=== PATIENT | male | born 1940 | race Caucasian/White ===

== ENCOUNTER 2023-08-15 11:29 | Day surgery (SDC) | payer OTHER ==
[2023-08-08 09:23] LABS: BASOPHILS # (AUTO) 0.1 X10'3 (0-0.2); BASOPHILS % (AUTO) 1.1 % (0-1); EOSINOPHILS # (AUTO) 0.2 X10'3 (0-0.9); EOSINOPHILS % (AUTO) 3.7 % (0-6); HEMATOCRIT 49.5 % (42.0-52.0); HEMOGLOBIN 17.1 g/dl (14.0-17.9); LYMPHOCYTES % (AUTO) 17.4 % (21-51); MEAN CORPUSCULAR HEMOGLOBIN 32.4 PG (27.0-31.0); MEAN CORPUSCULAR HGB CONC 34.5 g/dL (33.0-36.5); MEAN CORPUSCULAR VOLUME 93.8 FL (78-98); MEAN PLATELET VOLUME 7.3 FL (7.4-10.4); MONOCYTES # (AUTO) 0.5 X10'3 (0-0.9); MONOCYTES % (AUTO) 8.2 % (2-12); NEUTROPHILS # (AUTO) 4.1 X10'3 (1.8-7.7); NEUTROPHILS % (AUTO) 69.6 % (42-75); PLATELET COUNT 184 X10'3 (140-440); RED BLOOD COUNT 5.28 X10'6 (4.70-6.10); RED CELL DISTRIBUTION WIDTH 13.2 % (11.5-14.5); WHITE BLOOD COUNT 5.9 X10'3 (4.5-11.0)
[2023-08-08 09:36] LABS: APTT 28 SECONDS (22-32); INR 1.1 INR; PROTHROMBIN TIME 11.4 SECONDS (9.0-12.0)
[2023-08-08 09:37] LABS: ALBUMIN 4.2 G/DL (3.4-5.0); ANION GAP 6 (8-16); BLOOD UREA NITROGEN 20 MG/DL (7-18); BUN/CREATININE RATIO 19.4 (10.0-20.0); CALCIUM 9.1 MG/DL (8.5-10.1); CHLORIDE 103 MMOL/L (99-107); CHOL/HDL RATIO 3.2 (0.00-4.99); CHOLESTEROL 186 MG/DL (0-200); CREATININE 1.03 MG/DL (0.60-1.10); GLUCOSE 95 MG/DL (70-104); HDL CHOLESTEROL 59 MG/DL (35-60); LDL CHOLESTEROL 111 MG/DL (50-100); POTASSIUM 4.3 MMOL/L (3.5-5.1); SODIUM 139 MMOL/L (135-145); TRIGLYCERIDES 89 MG/DL (20-135); eGFR 69 ML/MIN
[2023-08-15] VITALS (8 sets, daily range): BP systolic 100–160; BP diastolic 55–79; PULSE 53–65; RESP 15–16; TEMP 97.4; O2SAT 94–98
[~2023-08-15] VITALS: Ht 165.1 cm; Wt 75.1 kg
[2023-08-15] MEDS ORDERED: normal saline 1,000 ML IV SCH (11:45)
[2023-08-15] MEDS ORDERED: LORazepam 0.5 MG tablet PO PRN (11:45)
[2023-08-15] MEDS ORDERED: diphenhydrAMINE 25mg capsule PO PRN (11:45)
[2023-08-15] MEDS ORDERED: ASPI-1265 PO (11:51)
[2023-08-15] MEDS ORDERED: LISI10TA27 PO (11:51)
[2023-08-15] MEDS ORDERED: FLO0.4C PO (11:51)
[2023-08-15] MEDS ORDERED: ROSU40TA PO (11:51)
[2023-08-15] MEDS ORDERED: DOCU-148 PO (11:53)
[2023-08-15] MEDS ORDERED: MAGN400C PO (11:53)
[2023-08-15] MEDS ORDERED: verapamil 2.5 mg/ml inj IV ONE (12:16)
[2023-08-15] MEDS ORDERED: LIDOcaine 1% (10mg/ml) 2ml vial ONE (12:16)
[2023-08-15] MEDS ORDERED: midazolam 1 mg/ML 2ml injection ONE (12:17)
[2023-08-15] MEDS ORDERED: iohexol 350MG/ML 100ml bottle IV ONE ×2 (12:17→13:48)
[2023-08-15] MEDS ORDERED: fentaNYL/PF 50MCG/1 ML 2ML syringe ONE (12:17)
[2023-08-15] MEDS ORDERED: heparin 1,000unit/ml 10ml vial 0 ML ONE (12:17)
[2023-08-15] MEDS ORDERED: nitroGLYCERIN 500mcg/5mL D5W 5 ML IV ONE (12:20)
[2023-08-15] MEDS ORDERED: heparin 1,000unit/ml 10ml vial 10 ML ONE (13:48)
[2023-08-20] MEDS ORDERED: ISOS10TA8 PO (16:23)
[2023-09-05] MEDS ORDERED: DOCU240C26 PO (10:55)
== END 2023-08-15 17:15 | disposition home or self-care (01) ==
LOC: SSTAY O 11:29
PROVIDERS: ATTEND Student in an Organized Health Care Education/Training Program
DX: R94.39 Abnormal result of other cardiovascular function study (principal); I10 Essential (primary) hypertension; E78.00 Pure hypercholesterolemia, unspecified; I25.10 Atherosclerotic heart disease of native coronary artery without angina pectoris; Z79.82 Long term (current) use of aspirin; Z79.899 Other long term (current) drug therapy
CPT/HCPCS: 36415; 80048; 80061; 85025; 85610; 85730; 93005; 93458; 99152; A6258; J1644; J2250; J3010; J3490; J7030; Q0163; Q9967; 96360; A6402; C1769; C1894

== ENCOUNTER 2023-09-08 08:33 | Inpatient (IN) | payer OTHER, MEDICARE ==
[2023-08-29 14:25] LABS: BILIRUBIN,URINE NEGATIVE (Neg); CLARITY,URINE CLEAR (Clear); COLOR,URINE YELLOW (Yellow); GLUCOSE, URINE NEGATIVE (Neg); KETONES,URINE NEGATIVE (Neg); LEUKOCYTE ESTERASE ,URINE NEGATIVE (Neg); NITRITES, URINE NEGATIVE (Neg); OCCULT BLOOD,URINE TRACE-INTACT (Neg); PROTEIN,URINE NEGATIVE (Neg); UROBILINOGEN,URINE 0.2 E.U/dL (0.2-1.0)
[2023-08-29 14:27] LABS: BASOPHILS # (AUTO) 0.1 X10'3 (0-0.2); BASOPHILS % (AUTO) 1.2 % (0-1); EOSINOPHILS # (AUTO) 0.2 X10'3 (0-0.9); EOSINOPHILS % (AUTO) 3.2 % (0-6); LYMPHOCYTES % (AUTO) 14.6 % (21-51); MEAN CORPUSCULAR HEMOGLOBIN 32.2 PG (27.0-31.0); MEAN CORPUSCULAR HGB CONC 34.2 g/dL (33.0-36.5); MEAN PLATELET VOLUME 7.4 FL (7.4-10.4); MONOCYTES # (AUTO) 0.6 X10'3 (0-0.9); MONOCYTES % (AUTO) 8.1 % (2-12); NEUTROPHILS # (AUTO) 5.2 X10'3 (1.8-7.7); NEUTROPHILS % (AUTO) 72.9 % (42-75); PRE OP HEMATOCRIT 46.7 % (42.0-52.0); PRE OP PLATELET COUNT 213 X10'3 (140-440); PRE OP WHITE BLOOD COUNT 7.1 10'3 (4.8-10.8); RED BLOOD COUNT 4.97 X10'6 (4.70-6.10); RED CELL DISTRIBUTION WIDTH 13.2 % (11.5-14.5)
[2023-08-29 14:39] LABS: PRE OP PROTIME 10.9 SECONDS (9.0-12.0)
[2023-08-29 14:40] LABS: ALBUMIN 3.8 G/DL (3.4-5.0); ALBUMIN/GLOBULIN RATIO 1.1 (1.1-1.5); ALKALINE PHOSPHATASE 71 IU/L (46-116); BLOOD UREA NITROGEN 23 MG/DL (7-18); BUN/CREATININE RATIO 19.8 (10.0-20.0); CALCIUM 9.2 MG/DL (8.5-10.1); CHLORIDE 102 MMOL/L (99-107); CREATININE 1.16 MG/DL (0.60-1.10); PRE OP ALT 44 U/L (30-65); PRE OP ANION GAP 4 (8-16); PRE OP AST 27 U/L (10-37); PRE OP BILIRUB, TOTAL 0.5 MG/DL (0.0-1.0); PRE OP GLUCOSE 97 MG/DL (70-104); PRE OP POTASSIUM 4.4 MMOL/L (3.4-5.1); PRE OP SODIUM 136 MMOL/L (135-145); TOTAL CARBON DIOXIDE 30.4 MMOL/L (24-32); TOTAL PROTEIN 7.4 G/DL (6.4-8.2); eGFR 60 ML/MIN
[2023-08-29 14:42] LABS: SQUAMOUS EPITHELIAL CELL,UR FEW /LPF (FEW); UA COLLECTION TYPE NON-SPECIFIED
[2023-08-29 14:43] LABS: BACTERIA,URINE FEW /HPF (Neg); MUCUS STRANDS MANY /LPF (Neg); RBC,URINE 0-2 /HPF (0-2); WBC,URINE 0-4 /HPF (0-4)
[2023-09-01 06:57] LABS: ABG BASE EXCESS -1.5 mmol/L (-2.0-2.0); ABG HCO3 22.6 mmol/L (22.0-26.0); ABG OXYGEN SATURATION 96.8 % (94-97); ABG PCO2 (T) 36.6 mmHg (35.0-48.0); ABG PH (T) 7.408 (7.340-7.440); ABG PO2 (T) 83.4 mmHg (75.0-100.0); ALLEN'S TEST POSITIVE; FCOHb 0.2 % (0.0-3.9); FHHb 3.2 % (0.0-5.0); FMetHb 0.3 % (0.0-1.5); FO2Hb 96.3 % (94-97); MODE ROOM AIR; TOTAL HEMOGLOBIN 17.1 G/dl (14.0-17.9)
[2023-09-08] VITALS (26 sets, daily range): BP systolic 91–135; BP diastolic 9–73; PULSE 54–97; RESP 12–30; TEMP 98.4–99.5; O2SAT 94–99
[~2023-09-08] VITALS: Ht 162.6 cm; Wt 74.4 kg
[2023-09-08] MEDS: cefazolin 2gm/D5W 100mL 100 ML IV ONE (05:30)
[2023-09-08] MEDS: famotidine 20mg tablet PO ONE (05:30)
[2023-09-08] MEDS: metoprolol tartrate 12.5mg (1/2 tablet) PO ONE (05:30)
[~2023-09-08 08:33] MED LIST: 0.9 % SODIUM CHLORIDE 10 ML VIAL ONE; ASPI-1265 PO; BUPIVAcaine 0.5% inj/PF 30 ML ONE; DOCU240C26 PO; FLO0.4C PO; ISOS10TA8 PO; Insulin Reg/NS 100units/100mL 100 ML IV SCH; LIDOcaine 2% (20mg/ml) 5ml vial ONE; LISI10TA27 PO; MAGN400C PO; ROPIVAcaine 0.5% (5mg/ml) 30ml vial ONE; ROSU40TA PO; ceFAZolin 1000mg inj ONE; dexamethasone sod phosphate 4mg/ml inj. ONE; dextrose 50%-water 50ml dispensing syringe IV PRN; ePHEDrine 50MG/ML INJ. ONE; epiNEPHrine 1 mg/ml inj ONE; fentaNYL /PF 50mcg/ml 5ml ampule ONE; glycopyrrolate 0.2mg/ml inj ONE; heparin 10,000 units/1 ML INJ ONE; insulin Lispro (HumaLOG) vial - multi-dose SQ PRN; midazolam 1 mg/ML 2ml injection ONE; ondansetron/PF 4mg/2ml inj ONE; propofol inj 20 ML IV ONE
[2023-09-08] MEDS: vancomycin 1,500 MG in NS 300ml IV soln IV ONE (10:00)
[2023-09-08] MEDS: mupirocin 2% nasal ointment 1gm UD NS ONE (10:00)
[2023-09-08] MEDS: ringers solution, lacted 1,000 ML IV SCH (10:00)
[2023-09-08] MEDS: LORazepam 2 mg/ml vial IV ONE (10:01)
[2023-09-08] MEDS ORDERED: heparin 10,000 units/1 ML INJ ONE (12:00)
[2023-09-08] MEDS ORDERED: vancomycin 1,000mg inj ONE (12:20)
[2023-09-08] MEDS ORDERED: MIDAZolam 1 MG/ML 5ML VIAL ONE (12:51)
[2023-09-08] MEDS ORDERED: SUfentanil 50mcg/ml 1ml amp IV ONE (12:51)
[2023-09-08] MEDS: BUPIVAcaine 0.5% inj/PF 30 ml vial IJ ONE (13:00)
[2023-09-08] MEDS: heparin 10,000 units/1 ML INJ IR ONE (13:00)
[2023-09-08] MEDS: epiNEPHrine 1 mg/ml inj SQ ONE (13:00)
[2023-09-08 13:52] LABS: ABG BASE EXCESS -2.1 mmol/L (-2.0-2.0); ABG HCO3 21.1 mmol/L (22.0-26.0); ABG PCO2 32.2 mmHg (35.0-48.0); ABG PH 7.435 (7.340-7.440); ABG PO2 187.7 mmHg (75.0-100.0); CL (ABG) 103 mmol/L (99-107); FCOHb 0.3 % (0.0-3.9); FO2Hb 98.7 % (94-97); GLUCOSE (ABG) 86 mg/dl (70-104); IONIZED CA (ABG) 1.17 mmol/L (1.10-1.30); K (ABG) 4.2 mmol/L (3.5-5.1); TOTAL HEMOGLOBIN 14.9 G/dl (14.0-17.9)
[2023-09-08 14:19] LABS: ACT @ 1.70 U 244 SEC (193-297); ACT @ 2.84 U 361 SEC (260-420); BASELINE ACT 129 SEC (101-148); PATIENT WEIGHT 73.0k KG
[2023-09-08 14:28] LABS: ABG BASE EXCESS VENOUS -3.8 mmol/L (-2.0 - 2.0); ABG HCO3 VENOUS 22.6 mmol/L (21.0-28.0); ABG OXYGEN SATURATION VENOUS 85.1 % (75 - 99 %); ABG PCO2 VENOUS 46.1 mmHg (41.0-54.0); ABG PH (VENOUS) 7.308 (7.310-7.450); ABG PO2 VENOUS 49.9 mmHg (25.0-35.0); CL (ABG) 102 mmol/L (99-107); FCOHb VENOUS 0.4 %; FHHb VENOUS 14.8 %; FO2Hb VENOUS 84.8 %; GLUCOSE (ABG) 105 mg/dl (70-104); IONIZED CA (ABG) 1.15 mmol/L (1.10-1.30); K (ABG) 4.2 mmol/L (3.5-5.1); TOTAL HEMOGLOBIN 14.4 G/dl (14.0-17.9)
[2023-09-08] MEDS ORDERED: rocuronium 10mg/ml inj IV ONE ×2 (14:41)
[2023-09-08] MEDS ORDERED: propofol inj 20 ML IV ONE (14:41)
[2023-09-08] MEDS ORDERED: heparin 1,000unit/ml 10ml vial 10 ML ONE (14:41)
[2023-09-08 15:27] LABS: ABG BASE EXCESS VENOUS -4.9 mmol/L (-2.0 - 2.0); ABG HCO3 VENOUS 21.4 mmol/L (21.0-28.0); ABG OXYGEN SATURATION VENOUS 78.8 % (75 - 99 %); ABG PCO2 VENOUS 44.1 mmHg (41.0-54.0); ABG PH (VENOUS) 7.303 (7.310-7.450); ABG PO2 VENOUS 42.5 mmHg (25.0-35.0); CL (ABG) 103 mmol/L (99-107); FCOHb VENOUS 0.2 %; FHHb VENOUS 21.2 %; FO2Hb VENOUS 78.6 %; GLUCOSE (ABG) 111 mg/dl (70-104); IONIZED CA (ABG) 1.12 mmol/L (1.10-1.30); TOTAL HEMOGLOBIN 13.9 G/dl (14.0-17.9)
[2023-09-08 15:30] LABS: ACTIVATED CLOTTING TIME 111 SEC (101-148)
[2023-09-08] MEDS ORDERED: nitroGLYCERIN-Tridil 50MG/D5W 250 ML IV PRN ×2 (15:30→15:44)
[2023-09-08] MEDS ORDERED: metoclopramide 5 mg/ml inj IV PRN (15:30)
[2023-09-08] MEDS ORDERED: sodium phosphate inj. 30 MMOL in dextrose 5%-water 250 ML IV PRN (15:30)
[2023-09-08] MEDS: Insulin Reg/NS 100units/100mL 100 ML IV SCH (15:30)
[2023-09-08] MEDS ORDERED: Neutra Phos packet PO PRN (15:30)
[2023-09-08] MEDS ORDERED: potassium Cl 20 mEq SR tablet PO PRN (15:30)
[2023-09-08] MEDS: sodium chloride 0.45% 1,000 ML IV SCH (15:30)
[2023-09-08] MEDS ORDERED: insulin glargine (Lantus) pen - multi-dose SQ PRN (15:30)
[2023-09-08] MEDS ORDERED: potassium Cl 40MEQ/1/2NS 520ml 520 ML IV PRN (15:30)
[2023-09-08] MEDS ORDERED: acetaminophen 325mg tablet PO PRN ×2 (15:30)
[2023-09-08] MEDS ORDERED: mineral oil 133ml enema RC PRN (15:30)
[2023-09-08] MEDS ORDERED: niCARDipine-NS 40mg/200ml IVPB 200 ML IV PRN (15:30)
[2023-09-08] MEDS ORDERED: bisacodyl 10mg suppository rectal RC PRN (15:30)
[2023-09-08] MEDS ORDERED: magnesium 2GM in 50ml NS 50 ML IV PRN (15:30)
[2023-09-08] MEDS ORDERED: potassium CL 10mEq/100ml bag 100 ML IV PRN (15:30)
[2023-09-08] MEDS ORDERED: potassium Cl 20mEq/100mL bag 100 ML IV PRN (15:30)
[2023-09-08] MEDS ORDERED: dextrose 50%-water 50ml dispensing syringe IV PRN (15:30)
[2023-09-08] MEDS: ceFAZolin/D5W- 1GM premix 50 ML IV SCH (16:00)
[2023-09-08 16:11] LABS: ABG BASE EXCESS -6.3 mmol/L (-2.0-2.0); ABG HCO3 18.7 mmol/L (22.0-26.0); ABG OXYGEN SATURATION 97.8 % (94-97); ABG PCO2 (T) 32.3 mmHg (35.0-48.0); ABG PO2 (T) 97.5 mmHg (75.0-100.0); FCOHb 0.3 % (0.0-3.9); FHHb 2.2 % (0.0-5.0); FMetHb 0.2 % (0.0-1.5); FO2Hb 97.3 % (94-97); MODE VENT - SIMV; PEEP 5 cm H2O; RESPIRATORY RATE 12 b/min; TIDAL VOLUME 500 mL; TOTAL HEMOGLOBIN 13.2 G/dl (14.0-17.9)
[2023-09-08 16:16] LABS: BASOPHILS % (AUTO) 0.3 % (0-1); EOSINOPHILS # (AUTO) 0.2 X10'3 (0-0.9); EOSINOPHILS % (AUTO) 1.6 % (0-6); HEMATOCRIT 36.5 % (42.0-52.0); HEMOGLOBIN 12.6 g/dl (14.0-17.9); LYMPHOCYTES # (AUTO) 0.8 X10'3 (1.1-4.8); LYMPHOCYTES % (AUTO) 7.5 % (21-51); MEAN CORPUSCULAR HEMOGLOBIN 32.4 PG (27.0-31.0); MEAN CORPUSCULAR HGB CONC 34.6 g/dL (33.0-36.5); MEAN CORPUSCULAR VOLUME 93.6 FL (78-98); MEAN PLATELET VOLUME 7.6 FL (7.4-10.4); MONOCYTES # (AUTO) 0.4 X10'3 (0-0.9); MONOCYTES % (AUTO) 3.9 % (2-12); NEUTROPHILS # (AUTO) 9.1 X10'3 (1.8-7.7); NEUTROPHILS % (AUTO) 86.7 % (42-75); PLATELET COUNT 136 X10'3 (140-440); WHITE BLOOD COUNT 10.5 X10'3 (4.5-11.0)
[2023-09-08 16:27] LABS: APTT 31 SECONDS (22-32); INR 1.2 INR
[2023-09-08 16:33] LABS: ANION GAP 10 (8-16); BILIRUBIN,TOTAL 0.8 MG/DL (0.1-1.0); BLOOD UREA NITROGEN 22 MG/DL (7-18); BUN/CREATININE RATIO 23.4 (10.0-20.0); CALCIUM 7.7 MG/DL (8.5-10.1); CHLORIDE 104 MMOL/L (99-107); CREATININE 0.94 MG/DL (0.60-1.10); GLUCOSE 117 MG/DL (70-104); MAGNESIUM 1.8 MG/DL (1.5-2.4); PHOSPHORUS 2.8 MG/DL (2.3-4.5); SODIUM 137 MMOL/L (135-145); TOTAL CARBON DIOXIDE 22.6 MMOL/L (24-32); eCRCL 53 ML/MIN; eGFR 77 ML/MIN
[2023-09-08 16:34] LABS: ALANINE AMINOTRANSFERASE 35 U/L (12-78); ALBUMIN 3.4 G/DL (3.4-5.0); ALBUMIN/GLOBULIN RATIO 1.5 (1.1-1.5); ALKALINE PHOSPHATASE 45 IU/L (46-116); ASPARTATE AMINO TRANSFERASE 22 U/L (10-37); TOTAL PROTEIN 5.7 G/DL (6.4-8.2)
[2023-09-08] MEDS: albumin (Human) 5% 250ml 250 ML IV PRN (16:43)
[2023-09-08] MEDS: morphine 4 MG/ML inj SYRINge IV PRN (16:50)
[2023-09-08] MEDS: potassium Cl 40MEQ/270ML bag 250 ML IV PRN (17:15)
[2023-09-08] MEDS: magnesium 4gm in 100ml NS 100 ML IV PRN (17:15)
[2023-09-08 18:45] LABS: MEAN CORPUSCULAR HEMOGLOBIN 27.7 PG (27.0-31.0)
[2023-09-08 18:46] LABS: BASOPHILS # (AUTO) 0.1 X10'3 (0-0.2); BASOPHILS % (AUTO) 0.6 % (0-1); EOSINOPHILS % (AUTO) 0.1 % (0-6); HEMATOCRIT 23.2 % (42.0-52.0); HEMOGLOBIN 7.5 g/dl (14.0-17.9); LYMPHOCYTES # (AUTO) 0.7 X10'3 (1.1-4.8); LYMPHOCYTES % (AUTO) 6.7 % (21-51); MEAN CORPUSCULAR HGB CONC 32.3 g/dL (33.0-36.5); MEAN CORPUSCULAR VOLUME 85.8 FL (78-98); MONOCYTES # (AUTO) 0.5 X10'3 (0-0.9); NEUTROPHILS # (AUTO) 8.6 X10'3 (1.8-7.7); NEUTROPHILS % (AUTO) 87.6 % (42-75); PLATELET COUNT 101 X10'3 (140-440); WHITE BLOOD COUNT 9.8 X10'3 (4.5-11.0)
[2023-09-08 19:03] LABS: ALBUMIN 3.1 G/DL (3.4-5.0); ALBUMIN/GLOBULIN RATIO 0.9 (1.1-1.5); ALKALINE PHOSPHATASE 203 IU/L (46-116); ANION GAP 10 (8-16); BILIRUBIN,TOTAL 1.1 MG/DL (0.1-1.0); BLOOD UREA NITROGEN 71 MG/DL (7-18); BUN/CREATININE RATIO 28.4 (10.0-20.0); CALCIUM 7.2 MG/DL (8.5-10.1); CHLORIDE 106 MMOL/L (99-107); GLUCOSE 155 MG/DL (70-104); MAGNESIUM 2.8 MG/DL (1.5-2.4); PHOSPHORUS 5.3 MG/DL (2.3-4.5); POTASSIUM 5.3 MMOL/L (3.5-5.1); SODIUM 141 MMOL/L (135-145); TOTAL PROTEIN 6.5 G/DL (6.4-8.2); eCRCL 19 ML/MIN; eGFR 25 ML/MIN
[2023-09-08 19:11] LABS: ALANINE AMINOTRANSFERASE 1100 U/L (12-78); ASPARTATE AMINO TRANSFERASE 1545 U/L (10-37)
[2023-09-08] MEDS ORDERED: NORepinephrine 8mg/ 250ml NS 250 ML IV PRN (20:45)
[2023-09-08] MEDS: tamsulosin 0.4mg capsule PO SCH (21:00)
[2023-09-08] MEDS: vancomycin/NS 1 GM ADD-VANTAGE 250 ML IV SCH (21:08)
[2023-09-08] MEDS: sennosides/docusate sodium tablet PO SCH (21:08)
[2023-09-08] MEDS: mupirocin 2% nasal ointment 1gm UD NS SCH (21:08)
[2023-09-08] MEDS: atorvastatin 10mg tablet PO SCH (21:08)
[2023-09-08] MEDS: morphine 2 MG/ML inj. syringe IV PRN (22:12)
[2023-09-08 23:07] LABS: ANISOCYTOSIS 1+; NUCLEATED RED BLOOD CELLS 1 /100WBC (0-0); PLATELET ESTIMATE DECREASED; TOTAL CELLS COUNTED 100
[2023-09-08 23:11] LABS: POLYCHROMASIA FEW
[2023-09-08 23:13] LABS: ELLIPTOCYTES FEW; SCHISTOCYTES FEW
[2023-09-09] VITALS (27 sets, daily range): BP systolic 88–162; BP diastolic 45–81; PULSE 57–85; RESP 13–27; O2SAT 92–98
[2023-09-09 00:42] LABS: MEAN CORPUSCULAR HEMOGLOBIN 31.8 PG (27.0-31.0); MEAN PLATELET VOLUME 7.6 FL (7.4-10.4); PLATELET COUNT 145 X10'3 (140-440)
[2023-09-09 00:44] LABS: BASOPHILS # (AUTO) 0.1 X10'3 (0-0.2); BASOPHILS % (AUTO) 0.3 % (0-1); EOSINOPHILS % (AUTO) 0 % (0-6); HEMATOCRIT 33.5 % (42.0-52.0); HEMOGLOBIN 11.5 g/dl (14.0-17.9); LYMPHOCYTES # (AUTO) 0.2 X10'3 (1.1-4.8); MEAN CORPUSCULAR HGB CONC 34.2 g/dL (33.0-36.5); MEAN CORPUSCULAR VOLUME 93.1 FL (78-98); MONOCYTES # (AUTO) 0.9 X10'3 (0-0.9); MONOCYTES % (AUTO) 5.1 % (2-12); NEUTROPHILS # (AUTO) 16.6 X10'3 (1.8-7.7); NEUTROPHILS % (AUTO) 93.6 % (42-75); RED CELL DISTRIBUTION WIDTH 12.6 % (11.5-14.5); WHITE BLOOD COUNT 17.8 X10'3 (4.5-11.0)
[2023-09-09 00:53] LABS: ALANINE AMINOTRANSFERASE 31 U/L (12-78); ALBUMIN 3.5 G/DL (3.4-5.0); ALBUMIN/GLOBULIN RATIO 1.7 (1.1-1.5); ALKALINE PHOSPHATASE 36 IU/L (46-116); ANION GAP 10 (8-16); ASPARTATE AMINO TRANSFERASE 22 U/L (10-37); BILIRUBIN,TOTAL 1.3 MG/DL (0.1-1.0); BLOOD UREA NITROGEN 19 MG/DL (7-18); BUN/CREATININE RATIO 17.9 (10.0-20.0); CALCIUM 7.5 MG/DL (8.5-10.1); CHLORIDE 105 MMOL/L (99-107); CREATININE 1.06 MG/DL (0.60-1.10); GLUCOSE 138 MG/DL (70-104); MAGNESIUM 2.6 MG/DL (1.5-2.4); PHOSPHORUS 2.3 MG/DL (2.3-4.5); POTASSIUM 4.6 MMOL/L (3.5-5.1); SODIUM 136 MMOL/L (135-145); TOTAL CARBON DIOXIDE 21.5 MMOL/L (24-32); TOTAL PROTEIN 5.6 G/DL (6.4-8.2); eCRCL 45 ML/MIN; eGFR 67 ML/MIN
[2023-09-09 01:06] LABS: ABG BASE EXCESS -5.9 mmol/L (-2.0-2.0); ABG OXYGEN SATURATION 97.6 % (94-97); ABG PCO2 (T) 36.6 mmHg (35.0-48.0); ABG PH (T) 7.336 (7.340-7.440); ABG PO2 (T) 100.5 mmHg (75.0-100.0); FCOHb 0.7 % (0.0-3.9); FHHb 2.4 % (0.0-5.0); FMetHb 0.3 % (0.0-1.5); FO2Hb 96.6 % (94-97); MODE spont 10/5; PATIENT TEMPERATURE 37.6; PEEP 5 cm H2O; RESPIRATORY RATE 16 b/min; TOTAL HEMOGLOBIN 12.4 G/dl (14.0-17.9)
[2023-09-09] MEDS: HYDROcodone/acetaminophen 10/325mg tab PO PRN ×2 (05:12→09:55)
[2023-09-09] MEDS: metoprolol tartrate 12.5mg (1/2 tablet) PO SCH (07:35)
[2023-09-09] MEDS: aspirin 81mg tab.chew PO SCH (07:35)
[2023-09-09] MEDS: sodium phosphate inj. 15 MMOL in dextrose 5%-water 250 ML IV PRN (09:57)
[2023-09-09] MEDS: lisinopril 10 MG tablet PO SCH (11:03)
[2023-09-10] VITALS (15 sets, daily range): BP systolic 87–150; BP diastolic 38–82; PULSE 57–72; RESP 16–28; TEMP 98.7–100.2; O2SAT 88–96
[2023-09-10 03:18] LABS: BASOPHILS # (AUTO) 0.1 X10'3 (0-0.2); BASOPHILS % (AUTO) 0.4 % (0-1); EOSINOPHILS # (AUTO) 0.2 X10'3 (0-0.9); EOSINOPHILS % (AUTO) 1.5 % (0-6); HEMATOCRIT 34.6 % (42.0-52.0); HEMOGLOBIN 11.8 g/dl (14.0-17.9); LYMPHOCYTES # (AUTO) 0.6 X10'3 (1.1-4.8); LYMPHOCYTES % (AUTO) 4.6 % (21-51); MEAN CORPUSCULAR HEMOGLOBIN 31.8 PG (27.0-31.0); MEAN CORPUSCULAR HGB CONC 34.2 g/dL (33.0-36.5); MEAN CORPUSCULAR VOLUME 93.1 FL (78-98); MEAN PLATELET VOLUME 8.2 FL (7.4-10.4); NEUTROPHILS % (AUTO) 86.5 % (42-75); PLATELET COUNT 121 X10'3 (140-440); RED BLOOD COUNT 3.72 X10'6 (4.70-6.10); RED CELL DISTRIBUTION WIDTH 13.5 % (11.5-14.5); WHITE BLOOD COUNT 13.9 X10'3 (4.5-11.0)
[2023-09-10 03:27] LABS: ALBUMIN 3.2 G/DL (3.4-5.0); ANION GAP 5 (8-16); BLOOD UREA NITROGEN 22 MG/DL (7-18); BUN/CREATININE RATIO 20.8 (10.0-20.0); CALCIUM 8.3 MG/DL (8.5-10.1); CHLORIDE 100 MMOL/L (99-107); CREATININE 1.06 MG/DL (0.60-1.10); GLUCOSE 123 MG/DL (70-104); MAGNESIUM 2.3 MG/DL (1.5-2.4); PHOSPHORUS 2.6 MG/DL (2.3-4.5); POTASSIUM 4.5 MMOL/L (3.5-5.1); SODIUM 131 MMOL/L (135-145); TOTAL CARBON DIOXIDE 25.6 MMOL/L (24-32); eCRCL 45 ML/MIN; eGFR 67 ML/MIN
[2023-09-10] MEDS ORDERED: magnesium 2GM in 50ml NS 50 ML IV PRN (08:00)
[2023-09-10] MEDS ORDERED: potassium CL 10mEq/100ml bag 100 ML IV PRN (08:00)
[2023-09-10] MEDS ORDERED: potassium Cl 40MEQ/1/2NS 520ml 520 ML IV PRN (08:00)
[2023-09-10] MEDS ORDERED: potassium Cl 40MEQ/270ML bag 250 ML IV PRN (08:00)
[2023-09-10] MEDS: magnesium Cl slow-release 64mg tablet PO SCH (08:00)
[2023-09-10] MEDS ORDERED: potassium Cl 20 mEq SR tablet PO PRN ×2 (08:00)
[2023-09-10] MEDS ORDERED: potassium Cl 20mEq/100mL bag 100 ML IV PRN (08:00)
[2023-09-10] MEDS ORDERED: magnesium 4gm in 100ml NS 100 ML IV PRN (08:00)
[2023-09-10] MEDS: pantoprazole 40mg Tablet.DR PO SCH (09:12)
[2023-09-10] MEDS: ondansetron/PF 4mg/2ml inj IV PRN (09:12)
[2023-09-11] VITALS (9 sets, daily range): BP systolic 83–133; BP diastolic 46–79; PULSE 55–72; RESP 12–20; TEMP 98.2–99.3; O2SAT 91–97
[2023-09-11 06:32] LABS: BASOPHILS % (AUTO) 0.2 % (0-1); EOSINOPHILS # (AUTO) 0.4 X10'3 (0-0.9); EOSINOPHILS % (AUTO) 3.3 % (0-6); HEMATOCRIT 33.9 % (42.0-52.0); HEMOGLOBIN 11.5 g/dl (14.0-17.9); LYMPHOCYTES # (AUTO) 0.7 X10'3 (1.1-4.8); LYMPHOCYTES % (AUTO) 6.2 % (21-51); MEAN CORPUSCULAR HEMOGLOBIN 31.7 PG (27.0-31.0); MEAN CORPUSCULAR HGB CONC 33.9 g/dL (33.0-36.5); MEAN CORPUSCULAR VOLUME 93.6 FL (78-98); MEAN PLATELET VOLUME 8.1 FL (7.4-10.4); MONOCYTES # (AUTO) 0.9 X10'3 (0-0.9); MONOCYTES % (AUTO) 7.6 % (2-12); NEUTROPHILS # (AUTO) 9.7 X10'3 (1.8-7.7); NEUTROPHILS % (AUTO) 82.7 % (42-75); PLATELET COUNT 121 X10'3 (140-440); RED BLOOD COUNT 3.62 X10'6 (4.70-6.10); RED CELL DISTRIBUTION WIDTH 13.4 % (11.5-14.5); WHITE BLOOD COUNT 11.7 X10'3 (4.5-11.0)
[2023-09-11 06:57] LABS: ALBUMIN 3.1 G/DL (3.4-5.0); ANION GAP 6 (8-16); BLOOD UREA NITROGEN 24 MG/DL (7-18); BUN/CREATININE RATIO 22.2 (10.0-20.0); CALCIUM 7.7 MG/DL (8.5-10.1); CHLORIDE 99 MMOL/L (99-107); CREATININE 1.08 MG/DL (0.60-1.10); GLUCOSE 93 MG/DL (70-104); MAGNESIUM 2.2 MG/DL (1.5-2.4); POTASSIUM 4.7 MMOL/L (3.5-5.1); SODIUM 131 MMOL/L (135-145); TOTAL CARBON DIOXIDE 26.1 MMOL/L (24-32); eCRCL 44 ML/MIN; eGFR 65 ML/MIN
[2023-09-11] MEDS: magnesium hydroxide 30ml (MOM) UD suspension PO PRN (09:03)
[2023-09-11] MEDS ORDERED: HYDR-3972 PO (11:05)
[2023-09-11] MEDS: ipratropium/albuterol 3ml nebule NEB PRN (14:14)
[2023-09-11] MEDS: furosemide 20 MG/2 ML vial IV ONE (17:03)
[2023-09-11] MEDS: lactose-reduced food (Ensure Enlive) - 237ml bottle PO SCH (18:00)
[2023-09-12] VITALS (17 sets, daily range): BP systolic 82–136; BP diastolic 40–64; PULSE 62–139; RESP 14–22; TEMP 97.4–98.9; O2SAT 90–98
[2023-09-12 06:48] LABS: BASOPHILS % (AUTO) 0.4 % (0-1); EOSINOPHILS # (AUTO) 0.4 X10'3 (0-0.9); EOSINOPHILS % (AUTO) 4.3 % (0-6); HEMATOCRIT 32.7 % (42.0-52.0); HEMOGLOBIN 11.2 g/dl (14.0-17.9); LYMPHOCYTES # (AUTO) 0.7 X10'3 (1.1-4.8); LYMPHOCYTES % (AUTO) 7.1 % (21-51); MEAN CORPUSCULAR HEMOGLOBIN 32.4 PG (27.0-31.0); MEAN CORPUSCULAR HGB CONC 34.3 g/dL (33.0-36.5); MEAN CORPUSCULAR VOLUME 94.5 FL (78-98); MEAN PLATELET VOLUME 8.7 FL (7.4-10.4); MONOCYTES % (AUTO) 9.8 % (2-12); NEUTROPHILS # (AUTO) 7.7 X10'3 (1.8-7.7); NEUTROPHILS % (AUTO) 78.4 % (42-75); PLATELET COUNT 140 X10'3 (140-440); RED BLOOD COUNT 3.46 X10'6 (4.70-6.10); RED CELL DISTRIBUTION WIDTH 13.3 % (11.5-14.5); WHITE BLOOD COUNT 9.8 X10'3 (4.5-11.0)
[2023-09-12 06:59] LABS: ALBUMIN 2.8 G/DL (3.4-5.0); ANION GAP 6 (8-16); BLOOD UREA NITROGEN 34 MG/DL (7-18); BUN/CREATININE RATIO 15.3 (10.0-20.0); CALCIUM 7.8 MG/DL (8.5-10.1); CHLORIDE 98 MMOL/L (99-107); CREATININE 2.22 MG/DL (0.60-1.10); GLUCOSE 89 MG/DL (70-104); MAGNESIUM 2.3 MG/DL (1.5-2.4); POTASSIUM 4.5 MMOL/L (3.5-5.1); SODIUM 131 MMOL/L (135-145); TOTAL CARBON DIOXIDE 26.7 MMOL/L (24-32); eCRCL 21 ML/MIN; eGFR 29 ML/MIN
[2023-09-12] MEDS: furosemide 40mg/4ml inj IV ONE (08:20)
[2023-09-12] MEDS: amiodarone 150mg/dext, iso-os 100 ML IV ONE (08:47)
[2023-09-12] MEDS: lactulose 20gm/30ml cup PO ONE (08:51)
[2023-09-12] MEDS: amiodarone/D5 360MG/200ML BAG 200 ML IV SCH (09:07)
[2023-09-12 09:52] LABS: ALBUMIN 2.8 G/DL (3.4-5.0); ANION GAP 8 (8-16); BLOOD UREA NITROGEN 35 MG/DL (7-18); BUN/CREATININE RATIO 16.1 (10.0-20.0); CALCIUM 8.3 MG/DL (8.5-10.1); CHLORIDE 97 MMOL/L (99-107); CREATININE 2.17 MG/DL (0.60-1.10); GLUCOSE 148 MG/DL (70-104); POTASSIUM 4.3 MMOL/L (3.5-5.1); SODIUM 128 MMOL/L (135-145); TOTAL CARBON DIOXIDE 22.7 MMOL/L (24-32); eCRCL 22 ML/MIN; eGFR 29 ML/MIN
[2023-09-12] MEDS: normal saline 500ml IV soln 500 ML IV STA (10:12)
[2023-09-12] MEDS: ondansetron 4mg rapidly disintigrating tab PO PRN (18:27)
[2023-09-13] VITALS (11 sets, daily range): BP systolic 105–147; BP diastolic 55–74; PULSE 60–69; RESP 17–22; TEMP 97.4–98.9; O2SAT 91–97
[2023-09-13 07:01] LABS: BASOPHILS % (AUTO) 0.5 % (0-1); EOSINOPHILS # (AUTO) 0.3 X10'3 (0-0.9); EOSINOPHILS % (AUTO) 3.2 % (0-6); HEMATOCRIT 32.5 % (42.0-52.0); HEMOGLOBIN 11.2 g/dl (14.0-17.9); LYMPHOCYTES # (AUTO) 0.5 X10'3 (1.1-4.8); LYMPHOCYTES % (AUTO) 5.2 % (21-51); MEAN CORPUSCULAR HEMOGLOBIN 32.2 PG (27.0-31.0); MEAN CORPUSCULAR HGB CONC 34.4 g/dL (33.0-36.5); MEAN CORPUSCULAR VOLUME 93.6 FL (78-98); MEAN PLATELET VOLUME 8.4 FL (7.4-10.4); MONOCYTES # (AUTO) 0.9 X10'3 (0-0.9); MONOCYTES % (AUTO) 10.4 % (2-12); NEUTROPHILS # (AUTO) 7.3 X10'3 (1.8-7.7); NEUTROPHILS % (AUTO) 80.7 % (42-75); PLATELET COUNT 153 X10'3 (140-440); RED BLOOD COUNT 3.47 X10'6 (4.70-6.10); RED CELL DISTRIBUTION WIDTH 13.1 % (11.5-14.5)
[2023-09-13 07:05] LABS: ALBUMIN 2.6 G/DL (3.4-5.0); ANION GAP 7 (8-16); BLOOD UREA NITROGEN 21 MG/DL (7-18); BUN/CREATININE RATIO 17.6 (10.0-20.0); CALCIUM 8.5 MG/DL (8.5-10.1); CHLORIDE 102 MMOL/L (99-107); CREATININE 1.19 MG/DL (0.60-1.10); GLUCOSE 101 MG/DL (70-104); MAGNESIUM 2.2 MG/DL (1.5-2.4); POTASSIUM 4.4 MMOL/L (3.5-5.1); SODIUM 135 MMOL/L (135-145); TOTAL CARBON DIOXIDE 26.2 MMOL/L (24-32); eCRCL 40 ML/MIN; eGFR 59 ML/MIN
[2023-09-13] MEDS: proCHLORperazine 10 MG/2 ml inj IV PRN (11:53)
[2023-09-13] MEDS: metoprolol tartrate 1mg/ml inj IV ONE (13:09)
[2023-09-13] MEDS: potassium Cl 20mEq in NS 1,000 ML IV SCH (13:46)
[2023-09-13] MEDS: ALPRAZolam 0.25mg tablet PO PRN (15:50)
[2023-09-14 02:00] VITALS: BP 144/68; PULSE 61; RESP 16; TEMP 98.1; O2SAT 97
[2023-09-14 06:00] VITALS: BP 113/65; PULSE 63; RESP 16; TEMP 97.6; O2SAT 97
[2023-09-14 07:05] LABS: ALBUMIN 2.4 G/DL (3.4-5.0); ANION GAP 6 (8-16); BLOOD UREA NITROGEN 16 MG/DL (7-18); BUN/CREATININE RATIO 16.3 (10.0-20.0); CALCIUM 8.1 MG/DL (8.5-10.1); CHLORIDE 105 MMOL/L (99-107); CREATININE 0.98 MG/DL (0.60-1.10); GLUCOSE 95 MG/DL (70-104); POTASSIUM 4.6 MMOL/L (3.5-5.1); SODIUM 138 MMOL/L (135-145); TOTAL CARBON DIOXIDE 26.9 MMOL/L (24-32); eCRCL 49 ML/MIN; eGFR 73 ML/MIN
[2023-09-14 08:00] VITALS: RESP 24
[2023-09-14 08:49] VITALS: PULSE 82; RESP 18; O2SAT 91
[2023-09-14 09:18] VITALS: BP_SYST 113
[2023-09-14] MEDS ORDERED: LOP25T PO (10:50)
[2023-09-15] MEDS ORDERED: ALBU8HFA INH (08:14)
== END 2023-09-14 11:26 | disposition home health service (06) | DRG 235 ==
LOC: PAS IN 08:33 → CICU 2S 15:43 → PCU 3S 09-10 12:20
PROVIDERS: ADMIT Thoracic Surgery (Cardiothoracic Vascular Surgery); ATTEND Thoracic Surgery (Cardiothoracic Vascular Surgery)
PROC: 021009W Bypass Coronary Artery, One Artery from Aorta with Autologous Venous Tissue, Open Approach (ICD-10-PCS; 2023-09-08)
PROC: 06BP0ZZ Excision of Right Saphenous Vein, Open Approach (ICD-10-PCS; 2023-09-08)
PROC: 02100Z9 Bypass Coronary Artery, One Artery from Left Internal Mammary, Open Approach (ICD-10-PCS; principal; 2023-09-08 12:56)
DX: I25.110 Atherosclerotic heart disease of native coronary artery with unstable angina pectoris (principal); N17.0 Acute kidney failure with tubular necrosis; E78.5 Hyperlipidemia, unspecified; I10 Essential (primary) hypertension; I48.91 Unspecified atrial fibrillation; K59.00 Constipation, unspecified; N40.0 Benign prostatic hyperplasia without lower urinary tract symptoms; Z79.899 Other long term (current) drug therapy
CPT/HCPCS: 36415; 36430; 36600; 71045; 71046; 80048; 80053; 81001; 82330; 82435; 82803; 82947; 82948; 83036; 83735; 84100; 84132; 84295; 85007; 85018; 85025; 85347; 85610; 85730; 86885; 86920; 87081; 93005; 93312; 93325; 93880; 93970; 94002; 94010; 94640; 94668; 94760; 97161; 97530; A4333; A4615; A4618; A5200; A6213; A6258; A6402; A6446; A6449; A7000; A7048; C1751; G0378; J0171; J0282; J0690; J0780; J1100; J1644; J1815; J1940; J2060; J2250; J2270; J2405; J2704; J2795; J3010; J3370; J3475; J3480; J3490; J7030; J7040; J7050; J7060; J7120; P9016; P9045; S0020